=== PATIENT | female | born 1965 | race African-American/Black ===

== ENCOUNTER 2022-12-05 19:34 | Emergency (ER) | payer BC, MEDICAID ==
[~2022-12-05] VITALS: Ht 167.6 cm; Wt 73.0 kg
[2022-12-05 21:58] LABS: CLARITY URINE CLOUDY (CLEAR); COLOR URINE YELLOW (YELLOW); KETONES URINE NEGATIVE (NEGATIVE); LEUKOCYTE ESTERASE URINE 3+ (NEGATIVE); NITRITE URINE NEGATIVE (NEGATIVE); OCCULT BLOOD URINE 3+ (NEGATIVE); PROTEIN URINE TRACE (NEGATIVE); SPECIFIC GRAVITY URINE 1.017 (1.005-1.030); UROBILINOGEN URINE 0.2 E.U./dL (0.2-1.0)
[2022-12-05] MEDS ORDERED: KETOROLAC 60MG/2ML VIAL IM ONE (22:45)
[2022-12-05] MEDS ORDERED: CEPH500C2 MT (22:46)
[2022-12-05 22:59] VITALS: BP 166/91
== END 2022-12-05 23:01 | disposition home or self-care (01) ==
LOC: ER 19:34
DX: N30.90 Cystitis, unspecified without hematuria (principal)
CPT/HCPCS: 81003; 87086; 96372; 99283; J1885; Z7610

== ENCOUNTER 2022-12-11 17:05 | Emergency (ER) | payer BC ==
[~2022-12-11] VITALS: Ht 170.2 cm; Wt 63.5 kg
[~2022-12-11 17:05] MED LIST: CEPH500C2 MT
[2022-12-11 17:13] VITALS: BP 131/74
[2022-12-11 19:21] LABS: CLARITY URINE CLEAR (CLEAR); COLOR URINE YELLOW (YELLOW); KETONES URINE NEGATIVE (NEGATIVE); LEUKOCYTE ESTERASE URINE 1+ (NEGATIVE); NITRITE URINE NEGATIVE (NEGATIVE); OCCULT BLOOD URINE 1+ (NEGATIVE); PH URINE 5.5 (4.5-8.0); PROTEIN URINE TRACE (NEGATIVE); SPECIFIC GRAVITY URINE 1.029 (1.005-1.030); UROBILINOGEN URINE 0.2 E.U./dL (0.2-1.0)
[2022-12-14 05:11] LABS: NEISSERIA GONORRHOEAE NAA Negative (Negative)
== END 2022-12-12 00:42 | disposition left against medical advice (07) ==
LOC: ER 17:05
DX: N89.8 Other specified noninflammatory disorders of vagina (principal)
CPT/HCPCS: 81003; 87210; 87491; 87591; 99284

== ENCOUNTER 2023-01-29 13:22 | Emergency (ER) | payer BC, MEDICAID ==
[~2023-01-29] VITALS: Ht 170.2 cm; Wt 74.0 kg
[2023-01-29 13:23] VITALS: TEMP 98.4; O2SAT 98
[2023-01-29] MEDS ORDERED: KETOROLAC 30MG/ML VIAL IM ONE (13:45)
[2023-01-29 14:07] LABS: BASOPHILS % 1.2 % (0.0-2.0); EOSINOPHILS % 3.2 % (0.0-5.0); HEMATOCRIT. 36.5 % (36.0-48.0); HEMOGLOBIN. 12.4 g/dL (12.0-16.0); LYMPHOCYTES % 24.2 % (20.0-50.0); MEAN CORPUSCULAR HEMOGLOBIN 30.5 pg (28.0-32.0); MEAN CORPUSCULAR VOLUME 89.3 fL (81.0-99.0); MEAN PLATELET VOLUME 7.6 fl (7.4-10.4); MONOCYTES % 4.7 % (2.0-8.0); NEUTROPHILS % 66.7 % (40.0-76.0); PLATELET 355 x1000/uL (130-400); RED BLOOD CELL COUNT 4.08 mill/uL (4.2-5.4); RED CELL DISTRIBUTION WIDTH 14.5 % (11.6-14.6)
[2023-01-29 14:36] LABS: CHLORIDE 112 mEq/L (98-107)
[2023-01-29 16:15] VITALS: BP 140/82; PULSE 89; RESP 18
[2023-01-29] MEDS ORDERED: HYDROCODONE/ACETAMINOPHEN 5/325MG TABLET PO ONE (16:15)
[2023-01-29] MEDS ORDERED: KETOROLAC 30MG/ML VIAL IM NR (16:15)
[2023-01-29] MEDS ORDERED: CIPR750T4 MT (16:42)
[2023-01-29] MEDS ORDERED: METR-167 MT (16:42)
[2023-01-29 17:44] LABS: CLARITY URINE TURBID (CLEAR); COLOR URINE RED (YELLOW); KETONES URINE 1+ (NEGATIVE); LEUKOCYTE ESTERASE URINE 3+ (NEGATIVE); NITRITE URINE POSITIVE (NEGATIVE); OCCULT BLOOD URINE 1+ (NEGATIVE); PROTEIN URINE 1+ (NEGATIVE); SPECIFIC GRAVITY URINE 1.025 (1.005-1.030)
== END 2023-01-29 17:45 | disposition home or self-care (01) ==
LOC: ER 13:27
DX: N82.3 Fistula of vagina to large intestine (principal)
CPT/HCPCS: 80053; 81003; 83690; 85025; 87086; 36415; 96372; 99283; J1885; Z7610